=== PATIENT | male | born 1945 | race Caucasian/White ===

== ENCOUNTER → 2024-03-12 | Outpatient (CLI) | payer MEDICARE | END | disposition home or self-care (01) | LOC: LAB 11:45 | PROVIDERS: ATTEND Internal Medicine | DX: Z12.5 Encounter for screening for malignant neoplasm of prostate (principal); R79.82 Elevated C-reactive protein (CRP); A69.20 Lyme disease, unspecified; R70.0 Elevated erythrocyte sedimentation rate ==